=== PATIENT | female | born 1980 | race Caucasian/White ===

== ENCOUNTER 2017-04-16 21:20 | Emergency (ER) | payer MEDICAID ==
[~2017-04-16] VITALS: Ht 167.6 cm; Wt 50.0 kg
[2017-04-16 21:35] VITALS: BP 125/91; PULSE 98; RESP 15; TEMP 98.6; O2SAT 100
[2017-04-16] MEDS ORDERED: ADDE30TA PO (21:45)
[2017-04-16] MEDS ORDERED: XANA1TAB2 PO (21:45)
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
== END 2017-04-16 23:15 | disposition home or self-care (01) ==
LOC: NEPD 21:20
DX: S01.81XA Laceration without foreign body of other part of head, initial encounter (principal); F10.929 Alcohol use, unspecified with intoxication, unspecified; F43.10 Post-traumatic stress disorder, unspecified; Y04.2XXA Assault by strike against or bumped into by another person, initial encounter
CPT/HCPCS: 12011